=== PATIENT | male | born 1965 | race Caucasian/White ===

== ENCOUNTER 2022-03-13 19:13 | Emergency (ER) | payer OTHER ==
[2022-03-13] MEDS ORDERED: diphenhydrAMINE 50 MG/ML VIAL ONE (19:49)
[2022-03-13] MEDS ORDERED: Metoclopramide HCl 10 MG/2 ML VIAL ONE (19:50)
[2022-03-13 20:12] LABS: #Basophils 0.1 10x3/uL (0.0-0.2); #Eosinphils 0.1 10x3/uL (0.0-0.5); #Monocytes 0.6 10x3/uL (0.0-1.1); %Eosinophils 2.6 % (0.0-6.0); %Lymphocytes 24.9 % (18.0-47.0); %Monocytes 11.4 % (0.0-10.0); %Neutrophils 59.5 % (40.0-75.0); Hemoglobin 14.3 g/dL (13.5-17.5); Mean Corpuscular HGB CONC 34.2 g/dL (32.0-36.0); Mean Corpuscular Hemoglobin 30.6 pg (27.0-33.0); Mean Corpuscular Volume 89.5 fl (81.2-95.1); Mean Platelet Volume 11.1 fl (7.4-10.4); Platelet Count 209 10x3/uL (150-450); RBC Distribution Width 13.2 % (11.5-14.5); Red Blood Cell (RBC) Count 4.67 10x6/uL (4.32-5.72)
[2022-03-13 20:28] LABS: ALT (SGPT) 42 U/L (8-55); AST (SGOT) 34 U/L (5-34); Albumin 4.3 g/dL (3.5-5.0); Alkaline Phosphatase 72 U/L (40-110); Anion Gap 14 mmol/L (10-20); BUN (Urea Nitrogen) 21 mg/dL (8.4-25.7); Bilirubin, Total 0.4 mg/dL (0.2-1.2); Calc. Creatinine Clearance 0 mL/min (70-130); Calcium 9.3 mg/dL (7.8-10.44); Carbon Dioxide 25 mmol/L (22-29); Chloride 104 mmol/L (98-107); Estimated GFR 76; Globulin 2.7 g/dL (2.4-3.5); Glucose 99 mg/dL (70-105); Potassium 4.4 mmol/L (3.5-5.1); Sodium 139 mmol/L (136-145)
[2022-03-13] MEDS ORDERED: Acetaminophen 500 MG TAB ONE (22:07)
== END 2022-03-13 22:32 | disposition home or self-care (01) ==
LOC: CSHERS 19:13
DX: R20.2 Paresthesia of skin (principal); R51.9 Headache, unspecified
CPT/HCPCS: 36416; 70450; 71045; 80053; 84484; 85025; 93005; 96361; 96365; J1200; J2765